=== PATIENT | male | born 1985 | race Caucasian/White ===

== ENCOUNTER 2021-07-14 17:59 | Inpatient (IN) | payer MEDICAID, SELFPAY ==
[2021-07-14 18:32] VITALS: BMI 22.2
[2021-07-14 18:33] VITALS: BP 149/100; PULSE 85; RESP 20; TEMP 36.8; O2SAT 99
[2021-07-14] MEDS: hyDROXYzine 25 mg Capsule 50 MG PO (18:58)
--- NOTE | 2021-07-14 19:02 | PC.NURSE ---
ADMISSION NOTE ADMITTED TO NPU AT 1752 WITH [facility] AND SECURITY. WAS AMBULATORY ON ADMISSION. WENT TO HOSPITAL IN [place] 2 DAYS AGO TO GET HELP WITH MY DRUG PROBLEM, I JUST WANT A BETTER LIFE AND I'M TIRED OF LIVING LIKE THIS. BILATERAL EYES ARE BLACK DUE TO HITTING HIS HEAD ON A TAILGATE, IT TOOK 3 COMMUNITY PROGRAM ASSISTANT TO GET HIM TO STOP AND GET HIM TO THE HOSPITAL. REPORTS HE HAS BEEN IN AND OUT OF [facility] SINCE HE WAS 18 AND HAS BEEN OUT FOR ABOUT 2 1/2 YEARS NOW. REPORTS HE IS QUICK TO ANGER WHEN HE IS ON METH OR COMING OFF METH AND USUALLY HURTS HIS SELF IN SOME WAY. BP WAS 150/100, STATES HE WAS TIED DOWN IN THE AMBULANCE AND IT MADE HIM NERVOUS. 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 DOES STATE, IF I CONTINUE TO LIVE LIKE THIS I SHOULD JUST KILL MYSELF, I JUST WANT HELP AND DON'T KNOW WHAT ELSE TO DO. REPORTS HE DOES NOT TAKE ANY MEDICATION. HAS NKDA. DENIES AVH AT THIS TIME. UDS WAS POSITIVE FOR METH AND THC. HE IS ANXIOUS WITH FAST AND PRESSURED SPEECH. MED NURSE DIRECTED TO GIVE VISTARIL ORDERED. ORIENTATED TO UNIT. TOOK SHOWER. SKIN ASSESSMENT SHOWS ABRASION ZOE LEFT OUTTER THIGH. ALL QUESTIONS ANSWERED AND SUPPORT VOICE.
[2021-07-14] MEDS: nicotine 2 mg Gum BUCCAL ×2 (19:18→20:47)
[2021-07-14] MEDS: haloperidol 5 mg Tablet PO (19:18)
[2021-07-14] MEDS: LORazepam 2 mg Tablet PO (19:18)
[2021-07-14 20:32] VITALS: BP 134/79; PULSE 89; RESP 18; TEMP 36.2; O2SAT 100
[2021-07-14] MEDS: trazodone 50 mg Tablet PO (20:47)
--- NOTE | 2021-07-15 00:09 | PC.NURSE ---
PRN ADMIN: Patient c/o trouble sleeping and nicotine withdrawals. PRN trazodone and nicotine gum given as ordered with noted effectiveness.
[2021-07-15 06:00] VITALS: BP 114/68; PULSE 83; RESP 12; TEMP 36.5; O2SAT 98
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
[2021-07-15] MEDS: folic acid 1 mg Tablet PO (10:58)
[2021-07-15] MEDS: thiamine 100 mg Tablet PO (10:58)
[2021-07-15] MEDS: multivitamin therapeutic Tablet 1 TAB PO (10:58)
[2021-07-15 14:00] VITALS: BP 117/72; PULSE 82; RESP 18; TEMP 36.6; O2SAT 98
--- NOTE | 2021-07-15 15:43 | PC.NURSE ---
NEW ORDERS. RECEIVED VERBAL DOCTOR ORDERS TO START ZOLOFT 50 MG PO DAILY, FIRST DOSE NOW AND THEN 0900, STRATERRA 40 MG PO DAILY WITH MEAL, START AT 1630 WITH DINNER. RBV, ORDERS PLACED IN IN COMPUTER. EDUCATION PROVIDED TO PT. ALL QUESTIONS ANSWERED AND SUPPORT VOICED.
[2021-07-15] MEDS: sertraline 50 mg Tablet PO (17:02)
[2021-07-15] MEDS: atomoxetine 40 mg Capsule PO (17:02)
--- NOTE | 2021-07-15 17:48 | PC.NURSE ---
This RN reviewed student nurse documentation and is in agreement of her assessment and care of this patient.
[2021-07-15 20:49] VITALS: BP 114/68; PULSE 98; RESP 19; TEMP 36.4; O2SAT 98
[2021-07-15] MEDS: trazodone 50 mg Tablet PO (20:57)
[2021-07-15] MEDS: nicotine 2 mg Gum BUCCAL (20:57)
--- NOTE | 2021-07-16 01:16 | PC.NURSE ---
PRN ADMIN Patient c/o trouble getting to sleep. PRN trazodone given as ordered with noted effectiveness.
[2021-07-16 06:00] VITALS: BP 112/73; PULSE 79; RESP 19; TEMP 36.6; O2SAT 97
[2021-07-16] MEDS: atomoxetine 40 mg Capsule PO (07:47)
[2021-07-16] MEDS: multivitamin therapeutic Tablet 1 TAB PO (07:47)
[2021-07-16] MEDS: sertraline 50 mg Tablet PO (07:47)
[2021-07-16] MEDS: folic acid 1 mg Tablet PO (07:48)
[2021-07-16] MEDS: thiamine 100 mg Tablet PO (07:48)
[2021-07-16 14:00] VITALS: BP 135/80; PULSE 113; RESP 19; TEMP 36.3; O2SAT 98
--- NOTE | 2021-07-16 18:34 | P.NPUPN_ITS ---
Subjective NPU Subjective: Patient presents today reporting that he is feeling a little better but still on edge. Staff reports moments of agitation especially frustration about the size of the meals and being hungry. He did talk with the social work team and they are developing a plan for discharge. We discussed the likelihood of discharge the next 48 hours. He denies any side effects from the medication that were started and we discussed a plan to titrate them as indicated. Mental Status Exam MSE Comments: This is a well-nourished, very fit white male in hospital scrubs with adequate grooming and eye contact. He has raccoon eyes from the trauma to his nose causing both his eyes to ecchymotic. No abnormal movements except for mild psychomotor agitation. Cooperative with exam in mild distress. Speech was normal rate and volume. Mood described as better, affect euthymic. Thought process, organized. Thought content: patient denies any suicidal or homicidal ideation, no delusions reported or noted, and denies any auditory or visual hallucinations. Attention and concentration are intact and memory is reliable but none were formally tested. He is alert and oriented three times. Insight and judgment appear fair. Impulse control is limited.? Vitals/I&O/Wt Last Vital Signs Temp 97.3 F L 07/16/21 14:00 Pulse 113 H 07/16/21 14:00 Resp 19 H 07/16/21 14:00 BP 135/80 07/16/21 14:00 Pulse Ox 98 07/16/21 14:00 A&P Assessment and plan (1) Bipolar disorder: Status: Acute (2) Methamphetamine use disorder, moderate: Status: Acute (3) Alcohol use disorder, severe, dependence: Status: Acute (4) Anxiety: Status: Acute (5) Major depressive disorder, recurrent: Status: Acute Plan This is a 36 year old white male with major depressive disorder, recurrent, history of bipolar versus schizophrenia however with methamphetamine use throughout his life, a psychotic disorder could easily be drug induced, who present with continued struggles with active use and recent suicidality wanting to restart medications. Continue current medications except started Zoloft 50 mg po qam and Stratter 40 mg po qdaily with meals and a plan to increase to 80 mg in about a week but likely at discharge. Encourage individual, group and milieu therapy Continue q-15 minute check for safety Recommend sober living treatment at the highest level of care to which the patient is willing to commit. Involuntary Hold Information 96 Hour Hold: 96 Hour Involuntary Admission: No Attestations NPU Medical Necessity Statement*: Inpatient hospitalization is medically necessary and the clinically appropriate intervention at this time. We will monitor medications and make changes as indicated. Likely length of stay is 2-4 days. Coding Level of Care Code Acute Plumbing And Heating Mechanic for [facility] Fwd Diagnoses Bipolar disorder F31.9 Methamphetamine use disorder, moderate F15.20 Alcohol use disorder, severe, dependence F10.20 Anxiety F41.9 Major depressive disorder, recurrent F33.9
[2021-07-16 21:25] VITALS: BP 138/89; PULSE 87; RESP 18; TEMP 36.4; O2SAT 98
--- NOTE | 2021-07-17 04:44 | PC.NURSE ---
PT UP EARLY IN SHIFT. TENSE BUT DIRECTABLE BY STAFF. GOOD INTERACTION NOTED WITH OTHERS. HAS BEEN IN BED RESTING THROUGHOUT MOST OF NIGHT AND REMAINS IN BED AT THIS TIME.
[2021-07-17 06:00] VITALS: BP 111/72; PULSE 64; RESP 17; TEMP 36.8; O2SAT 95
[2021-07-17] MEDS: thiamine 100 mg Tablet PO (10:01)
[2021-07-17] MEDS: multivitamin therapeutic Tablet 1 TAB PO (10:01)
[2021-07-17] MEDS: atomoxetine 40 mg Capsule PO (10:01)
[2021-07-17] MEDS: folic acid 1 mg Tablet PO (10:01)
[2021-07-17] MEDS: sertraline 50 mg Tablet PO (10:02)
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
[2021-07-17 13:46] VITALS: BP 111/72; PULSE 64; RESP 17; TEMP 36.8; O2SAT 95
== END 2021-07-17 14:45 | disposition home or self-care (01) | DRG 885 ==
PROVIDERS: Admitting Provider Psychiatry & Neurology Psychiatry; PCP Psychiatry & Neurology Psychiatry; Visit Provider Psychiatry & Neurology Psychiatry
DX: F33.9 Major depressive disorder, recurrent, unspecified (principal); F15.13 Other stimulant abuse with withdrawal; F10.130 Alcohol abuse with withdrawal, uncomplicated; R45.851 Suicidal ideations; F41.9 Anxiety disorder, unspecified; F90.2 Attention-deficit hyperactivity disorder, combined type; F17.210 Nicotine dependence, cigarettes, uncomplicated
CPT/HCPCS: 97150; 97165